=== PATIENT | male | born 1945 | race Caucasian/White ===

== ENCOUNTER 2019-08-20 19:26 | Emergency (ER) | payer MEDICARE, BC ==
[~2019-08-20] VITALS: Ht 170.2 cm; Wt 102.1 kg
--- OUTSIDE RECORDS SUMMARY | ~2019-08-20 | XMS | Clinical Summary ---
Demographics + + + | Address | [address] | | | [place] [address] | + + + | Home Phone | | + + + | Preferred Language | Unknown | + + + | Marital Status | | + + + | Episcopal Affiliation | Unknown | + + + | Race | Unknown | + + + | Ethnic Group | Unknown | + + + Author + + + | Author | [facility] [employer] [facility] (Historical as of | | | 06-21-19) | + + + | Organization | [facility] [employer] (Historical as of | | | 06-21-19) | + + + | Address | Unknown | + + + | Phone | Unavailable | + + + Support + + + + + | Name | Relationship | Address | Phone | + + + + + | Jacque Potter | ECON | [address] | | | | | [place] [address] | | + + + + + Care Team Providers + +------+ + | Care Program Director Name | Role | Phone | + +------+ + | Lucas Thomas MD | PP | | + +------+ + Allergies + + + + + + | Active Allergy | Reactions | Severity | Noted | Comments | | | | | Date | | + + + + + + | Leflunomide | Diarrhea, Nausea and | Low | 09/23/20 | | | | Vomiting | | 15 | | + + + + + + | Atorvastatin | Muscle Pain | | 03/12/20 | | | | | | 19 | | + + + + + + | Celecoxib | Other (See Comments) | Medium | 09/23/20 | muscular aches and | | | | | 15 | pain | + + + + + + | Methotrexate | Nausea Only | Low | 09/23/20 | | | Derivatives | | | 15 | | + + + + + + | Penicillins | Anaphylaxis | High | 09/23/20 | | | | | | 15 | | + + + + + + | Sulfa Antibiotics | Rash | Medium | 09/23/20 | | | | | | 15 | | + + + + + + | Liraglutide | Other (See Comments) | Medium | 09/23/20 | Causes pain to | | | | | 15 | stomach and back | + + + + + + | Ezetimibe-Simvastati | Other (See Comments) | Medium | 09/23/20 | Muscular aches and | | n | | | 15 | pains | + + + + + + Current Medications + + +--------+---------+------+------+-------+ | Prescription | Sig. | Disp. | Refills | Star | End | Statu | | | | | | t | Date | s | | | | | | Date | | | + + +--------+---------+------+------+-------+ | aspirin 81 MG EC | Take 81 mg by mouth | | | | | Activ | | tablet | daily with | | | | | e | | | breakfast. | | | | | | + + +--------+---------+------+------+-------+ | glipiZIDE | Take 10 mg by mouth | | | | | Activ | | (GLUCOTROL) 10 MG | daily. | | | | | e | | tablet | | | | | | | + + +--------+---------+------+------+-------+ | insulin glargine | Inject 48 Units into | | | | | Activ | | (LANTUS) 100 UNIT/ML | the skin nightly. | | | | | e | | injection | | | | | | | + + +--------+---------+------+------+-------+ | | Take 1 tablet by | | | | | Activ | | losartan-hydrochloro | mouth daily. | | | | | e | | thiazide (HYZAAR) | | | | | | | | 100-25 MG per tablet | | | | | | | + + +--------+---------+------+------+-------+ | famotidine | Take 40 mg by mouth | | | | | Activ | | (PEPCID) 40 MG | Before eavning meal. | | | | | e | | tablet | | | | | | | + + +--------+---------+------+------+-------+ | omeprazole | Take 20 mg by mouth | | | | | Activ | | (PRILOSEC) 20 MG | every morning before | | | | | e | | capsule | breakfast. | | | | | | + + +--------+---------+------+------+-------+ | levothyroxine | Take 125 mcg by | | | | | Activ | | (SYNTHROID) 125 MCG | mouth every morning | | | | | e | | tablet | before breakfast. 2 | | | | | | | | tablets in mornings | | | | | | + + +--------+---------+------+------+-------+ | Cholecalciferol | Take 1,000 Units by | | | | | Activ | | 2000 UNITS CAPS | mouth once a week. | | | | | e | + + +--------+---------+------+------+-------+ | nitroGLYCERIN | Place 1 tablet under | 25 | 3 | 09/05 | | Activ | | (NITROSTAT) 0.4 MG | the tongue every 5 | tablet | | 9/20 | | e | | SL tablet | (five) minutes as | | | 15 | | | | | needed for Chest | | | | | | | | pain. | | | | | | + + +--------+---------+------+------+-------+ | metFORMIN | Take 1 tablet by | | | 12/06 | | Activ | | (GLUCOPHAGE) 1000 MG | mouth 2 (two) times | | | /20 | | e | | tablet | daily with meals. | | | 16 | | | | | Hold for 2 more | | | | | | | | days. Restart on | | | | | | | | Sunday12/25/2015 | | | | | | + + +--------+---------+------+------+-------+ | amLODIPine | Take 5 mg by mouth | | | | | Activ | | (NORVASC) 5 MG | daily. | | | | | e | | tablet | | | | | | | + + +--------+---------+------+------+-------+ | methotrexate 50 | Inject 50 mg into | | | | | Activ | | MG/2ML injection | the muscle every 7 | | | | | e | | | days. | | | | | | + + +--------+---------+------+------+-------+ | folic acid | Take 1 mg by mouth | | | | | Activ | | (FOLVITE) 1 MG | daily. | | | | | e | | tablet | | | | | | | + + +--------+---------+------+------+-------+ | clobetasol | Apply 0.05 % | | | | | Activ | | propionate | topically 2 (two) | | | | | e | | (TEMOVATE) 0.05 % | times daily. Apply | | | | | | | cream | twice a day to the | | | | | | | | affected area | | | | | | + + +--------+---------+------+------+-------+ | econazole nitrate | Apply topically | | | | | Activ | | 1 % cream | daily. | | | | | e | + + +--------+---------+------+------+-------+ | insulin NPH, | Inject 5 Units into | | | | | Activ | | human, (HUMULIN) 100 | the skin daily. | | | | | e | | UNIT/ML injection | | | | | | | + + +--------+---------+------+------+-------+ | cyanocobalamin | Take 1,000 mcg by | | | | | Activ | | (VITAMIN B-12) 1000 | mouth daily. | | | | | e | | MCG tablet | | | | | | | + + +--------+---------+------+------+-------+ | prazosin | Take 1 mg by mouth | | | | | Activ | | (MINIPRESS) 1 MG | nightly. | | | | | e | | capsule | | | | | | | + + +--------+---------+------+------+-------+ | metoprolol | Take 1 tablet by | 90 | 3 | 05/0 | | Activ | | (TOPROL-XL) 25 MG 24 | mouth daily. | tablet | | 8/20 | | e | | hr tablet | | | | 19 | | | + + +--------+---------+------+------+-------+ | ezetimibe (ZETIA) | Take 1 tablet by | 30 | 11 | 05/0 | 05/0 | Activ | | 10 MG tablet | mouth daily. | tablet | | 8/20 | 7/20 | e | | | | | | 19 | 20 | | + + +--------+---------+------+------+-------+ Active Problems + + + | Problem | Noted Date | + + + | Rheumatoid arthritis (HCC) | 03/12/2019 | + + + | Essential hypertension | 09/23/2015 | + + + + + | Last Assessment & Plan: Hypertension, controlled, continue | | current meds at current dose (losartan | | | | HCT). | + + + + + | HLD (hyperlipidemia) | 09/23/2015 | + + + + + | Last Assessment & Plan: Hyperlipidemia, labs reviewed with | | patient. [place] 10 year risk 16%, should be considered for | | statin therapy.Lab, 07/01/2015: T Chol: 177, LDL-Chol: 104, | | HDL-Chol: 41, Tri AST/ALT/GGT: | | 36/54/59, K: 4.3, BUN/Cr: 14/1.2 (GFR 63), glu: 171 | | TSH: 0.289, free T4: 2.26, HgbA1c: 8.9, WBC: 7.3, | | H/H: 16.3/48.3, plt: 261, ESR: 1Lab, 09/06/2015: T Chol: 188, | | LDL-Chol: 117, HDL-Chol: 46, Tri | | TSH: 0.202, HgbA1c: 8.1Lab, 12/22/2015: K: 3.5, BUN/Cr: 12/1.3 | | (GFR 58), glu: 154 WBC: 6.2, H/H: | | 14.6/41.8, plt: 262 | + + + + + | Type 2 diabetes mellitus without complication (HCC) | 09/23/2015 | + + + Resolved Problems + + + + | Problem | Noted | Resolved | | | Date | Date | + + + + | Precordial pain | 09/23/20 | | | | 15 | 9 | + + + + + + | Last Assessment & Plan: Chest pain. 70yo WM, with | | recurrent chest discomfort, shortness breath, brought on with | | exertion. He denies any palpitations, no symptoms at rest. The | | amount of activity required to bring on symptoms varies, as does | | the duration of symptoms. No trauma. ECG benign. Recent | | nuclear perfusion study suggest a small area of reversible | | ischemia involving the inferior lateral wall left ventricle. She | | went on to have a coronary angiogram which revealed normal | | coronaries, questionable aortic valve gradient, however | | echocardiogram failed to demonstrate any aortic stenosis or | | aortic insufficiency. His LVEF is well-preserved, he does have | | mild concentric LVH. Because of his chest discomfort is not | | entirely clear, but he does not have any significant coronary | | disease. I've asked him to continue metoprolol as previously | | ordered, and to get into a regular exercise routine. He can be | | followed clinically.Hx CABG: noHx PCI/stent: noHx ICD/Pacemaker: | | noLast Cath, 12/22/2015: coronaries NML (left arelis, LAD, ramus, | | LCx, dominant RCA), LVEF 60-65%, 50mmHg Ao gradient?.Last Echo, | | 12/22/2015: TDS, mild concentric LVH, LVEF 60-65%, mild LAE, no | | , trace MR, mild TR, est systolic PAP 27-32mmHg.Last Stress | | Test, 11/17/2015 ([facility]): Lexiscan, small area of ischemia | | in the inferolateral wall, LVEF 76%. (False positive.)ECG, | | : sinus rhythm, 67bpm, low voltage. | + + Family History + + +------+ + | Medical History | Relation | Name | Comments | + + +------+ + | Diabetes type II | Father | | | + + +------+ + | Heart disease | Father | | | + + +------+ + | Hypertension | Father | | | + + +------+ + | Cancer | Maternal | | | | | Grandfath | | | | | er | | | + + +------+ + | Cancer | Maternal | | | | | Grandmoth | | | | | er | | | + + +------+ + | Heart disease | Mother | | | + + +------+ + | Hypertension | Mother | | | + + +------+ + | Cancer | Paternal | | | | | Grandmoth | | | | | er | | | + + +------+ + + +------+ + + | Relation | Name | Status | Comments | + +------+ + + | Father | | | VA,CHF,HTN,DMII | | | | (Age | | | | | 80) | | + +------+ + + | Maternal Grandfather | | | brain tumor-malignant | | | | (Age | | | | | 52) | | + +------+ + + | Maternal Grandmother | | | heart disease | | | | (Age | | | | | 84) | | + +------+ + + | Mother | | | CHF,HTN | | | | (Age | | | | | 84) | | + +------+ + + | Paternal Grandmother | | | pancreatic cancer | | | | (Age | | | | | 78) | | + +------+ + + Social History + +-------+ +--------+------+ | Tobacco Use | Types | Packs/Day | Years | Date | | | | | Used | | + +-------+ +--------+------+ | Never Smoker | | | | | + +-------+ +--------+------+ + +---+---+---+ | Smokeless Tobacco: | | | | | Never Used | | | | + +---+---+---+ + + +---------+ + | Alcohol Use | Drinks/We | oz/Week | Comments | | | ek | | | + + +---------+ + | Yes | | | once a week | + + +---------+ + + + + | Sex Assigned at | Date Recorded | | | | + + + | Not on file | | + + + Last Filed Vital Signs + + + + | Vital Sign | Reading | Time Taken | + + + + | Blood Pressure | 124/64 | 03/12/2019 12:48 PM PDT | + + + + | Pulse | 99 | 03/12/2019 12:48 PM PDT | + + + + | Temperature | 36.8 C (98.2 F) | 12/22/2015 10:23 AM PST | + + + + | Respiratory Rate | 19 | 01/10/2016 11:11 AM PST | + + + + | Oxygen Saturation | 96% | 03/12/2019 12:48 PM PDT | + + + + | Inhaled Oxygen | - | - | | Concentration | | | + + + + | Weight | 103.9 kg (229 lb 1.6 | 03/12/2019 12:48 PM PDT | | | oz) | | + + + + | Height | 171.5 cm (5' 7.5") | 03/12/2019 12:48 PM PDT | + + + + | Body Mass Index | 35.35 | 03/12/2019 12:48 PM PDT | + + + + Plan of Treatment +--------+---------+ + + + | Date | Type | Specialty | Care Team | Description | +--------+---------+ + + + | 03/24/ | Office | | Alexander Rojo, | | | 2019 | Visit | | MD Chester Trammell | | | | | | Dr [address], | | | | | | [place] [address] | | | | | | [phone] | | | | | | | | +--------+---------+ + + + + + + + + | Health Maintenance | Due Date | Last Done | Comments | + + + + + | Diabetic Eye Exam | | | | | | 7 | | | + + + + + | Diabetic Foot Exam | | | | | | 7 | | | + + + + + | Hemoglobin A1c | | | | | | 7 | | | + + + + + | Microalbumin | | | | | Screening | 7 | | | + + + + + | Vaccine: | | | | | Dtap/Tdap/Td (1 - | 6 | | | | Tdap) | | | | + + + + + | Colon Cancer | | | | | Screening | 7 | | | | (Colonoscopy) | | | | + + + + + | Vaccine: Zoster (1 | | | | | of 2) | 7 | | | + + + + + | Vaccine: | | | | | Pneumococcal 65+ | 2 | | | | Low/Medium Risk (1 | | | | | of 2 - PCV13) | | | | + + + + + | Vaccine: Influenza | | | | | (#1) | 9 | | | + + + + + Results Not on filefrom Last 3 Months Insurance + +--------+ +------+-------+ + | Payer | Benefi | Subscriber | Type | Phone | Address | | | t Plan | ID | | | | | | / | | | | | | | Group | | | | | + +--------+ +------+-------+ + | [employer] | PREMER | [id number] | | | [address] [address] | | | A BLUE | 8 | | | [place] | | | CARD | | | | [phone] | + +--------+ +------+-------+ + | MEDICARE | MEDICA | [id number] | | | [address] | | | RE | | | | [place] [id number] | | | IP-OP | | | | | + +--------+ +------+-------+ + + +--------+ +--------+ + + | Guarantor Name | Accoun | Relation to | Date | Phone | Billing Address | | | t Type | Patient | of | | | | | | | | | | + +--------+ +--------+ + + | JACQUE POTTER | Person | Self [birth year] | Home: | [address] | | | al/Fam | | 1945 | [phone] | [place] [address] | | | [place] | | | [phone] | | + +--------+ +--------+ + +
--- OUTSIDE RECORDS SUMMARY | ~2019-08-20 | XMS | Clinical Summary ---
Demographics + + + | Address | [address] | | | [place] [address] | + + + | Home Phone | | + + + | Preferred Language | Unknown | + + + | Marital Status | | + + + | Scientologist Affiliation | Unknown | + + + | Race | Unknown | + + + | Ethnic Group | Unknown | + + + Author + + + | Author | [facility] [employer] (Historical as of | | | 06-21-19) | + + + | Organization | [facility] [facility] (Historical as of | | | 06-21-19) | + + + | Address | Unknown | + + + | Phone | Unavailable | + + + Support + + + + + | Name | Relationship | Address | Phone | + + + + + | Jacque Potter | ECON | [address] | | | | | [place] [address] | | + + + + + Care Team Providers + +------+ + | Care Digging Machine Operator Name | Role | Phone | + [...] Hyperlipidemia, labs reviewed with | | patient. [place] 10 year risk 16%, should be considered [...] + + | Father | | | [place],CHF,HTN,DMII | | | | (Age | | [...] | | | | | | [place] [address] | | | | | | [phone] | | | | | | | [...] +------+-------+ + | [employer] | PREMER | [id number] | | | [address] [address] | | | A BLUE | 8 | | | [place] | | | CARD | | | | [phone] | + +--------+ +------+-------+ + | MEDICARE | MEDICA | [id number] | | | [address] | | | RE | | | | [place] [phone] | | | IP-OP | | | [...] | Self [birth year] | Home: | [address] | | | al/Fam | | 1945 | [phone] | [place] [address] | | | [place] | | | [phone] | | + +--------+ +--------+ + +
--- OUTSIDE RECORDS SUMMARY | ~2019-08-20 | XMS | Clinical Summary ---
Demographics + + + | Address | [address] | | | [place] [address] | + + + | Home Phone | | + + + | Preferred Language | Unknown | + + + | Marital Status | | + + + | Synagogue Affiliation | Unknown | + + + | Race | Unknown | + + + | Ethnic Group | Unknown | + + + Author + + + | Author | [facility] | | | and [place] | + + + | Organization | [facility] | | | and [place] | + + + | Address | Unknown | + + + | Phone | Unavailable | + + + Support + + + + + | Name | Relationship | Address | Phone | + + + + + | Yessi Potter | ECON | [address] | | | | | , [place] [address] | | + + + + + | Kimberly Potter | ECON | [address] | | | | | , [place] [address] | | + + + + + Care Team Providers + +------+ + | Care Content Specialist Name | Role | Phone | + +------+ + | Lucas Thomas MD | PCP | | + +------+ + Allergies + + + + + + | Active Allergy | Reactions | Severity | Noted | Comments | | | | | Date | | + + + + + + | Leflunomide | Diarrhea, Nausea And | Low | 09/23/20 | Diarrhea | | | Vomiting | | 15 | | + + + + + + | Atorvastatin | Myalgia | | 03/12/20 | Muscle Pain | | | | | 19 | | + + + + + + | Celecoxib | Other (See Comments) | Medium | 09/23/20 | muscular aches and | | | | | 15 | pain | + + + + + + | Methotrexate | Nausea Only | Low | 09/23/20 | Nausea | | Derivatives | | | 15 | | + + + + + + | Penicillins | Anaphylaxis | High | 09/23/20 | | | | | | 15 | | + + + + + + | Sulfa Antibiotics | Rash | Medium | 09/23/20 | Rash | | | | | 15 | [...] | + + + + + + Medications + + + +---------+------+------+-------+ | Medication | Sig | Dispensed | Refills | Star | End | Statu | | | | | | t | Date | s | | | | | | Date | | | + + + +---------+------+------+-------+ | aspirin 81 MG EC | Take 81 mg by mouth | | 0 | 11/1 | | Activ | | tablet | daily with | | | 9/20 | | e | | | breakfast. | | | 15 | | | + + + +---------+------+------+-------+ | glipiZIDE | Take 10 mg by mouth | | 0 | 11/1 | | Activ | | (GLUCOTROL) 10 MG | daily. | | | 9/20 | | e | | tablet | | | | 15 | | | + + + +---------+------+------+-------+ | insulin glargine | Inject 48 Units into | | 0 | 1 | | Activ | | (LANTUS SOLOSTAR) | the skin nightly. | | | 9/20 | | e | | 100 units/mL | | | | 15 | | | | injection (pen) | | | | | | | + + + +---------+------+------+-------+ | | Take 1 tablet by | | 0 | 09/05 | | Activ | | losartan-hydrochloro | mouth daily. | | | 07/25 | | e | | thiazide (HYZAAR) | | | | 15 | | | | 100-25 MG per tablet | | | | | | | + + + +---------+------+------+-------+ | famotidine | Take 40 mg by mouth | | 0 | 09/05 | | Activ | | (PEPCID) 40 MG | Before eavning meal. | | | 20 | | e | | tablet | | | | 15 | | | + + + +---------+------+------+-------+ | omeprazole | Take 20 mg by mouth | | 0 | 11/1 | | Activ | | (PRILOSEC) 20 mg | every morning before | | | 9/20 | | e | | capsule | breakfast. | | | 15 | | | + + + +---------+------+------+-------+ | levothyroxine | Take 125 mcg by | | 0 | /1 | | Activ | | (SYNTHROID) 125 mcg | mouth every morning | | | 20 | | e | | tablet | before breakfast. 2 | | | 15 | | | | | tablets in mornings | | | | | | + + + +---------+------+------+-------+ | Cholecalciferol | Take 1,000 Units by | | 0 | 1 | | Activ | | (VITAMIN D-3) 2000 | mouth once a week. | | | 9/20 | | e | | units CAPS | | | | 15 | | | + + + +---------+------+------+-------+ | metFORMIN | Take 1 tablet by | | 0 | 02/1 | | Activ | | (GLUCOPHAGE) 1000 MG | mouth 2 (two) times | | | 05/24 | | e | | tablet | daily with meals. | | | 16 | | | | | Hold for 2 more | | | | | | | | days. Restart on | | | | | | | | Sunday12/25/2015 | | | | | | + + + +---------+------+------+-------+ | amLODIPine | Take 5 mg by mouth | | 0 | 03/0 | | Activ | | (NORVASC) 5 mg | daily. | | | 05/24 | | e | | tablet | | | | 16 | | | + + + +---------+------+------+-------+ | methotrexate 25 | Inject 50 mg into | | 0 | 05/0 | | Activ | | mg/mL injection | the muscle every 7 | | | 06/24 | | e | | | days. | | | 19 | | | + + + +---------+------+------+-------+ | folic acid 1 mg | Take 1 mg by mouth | | 0 | 05/0 | | Activ | | tablet | daily. | | | 8/20 | | e | | | | | | 19 | | | + + + +---------+------+------+-------+ | clobetasol | Apply 0.05 % | | 0 | 05/0 | | Activ | | (TEMOVATE) 0.05% | topically 2 (two) | | | 8/20 | | e | | cream | times daily. Apply | | | 19 | | | | | twice a day to the | | | | | | | | affected area | | | | | | + + + +---------+------+------+-------+ | econazole 1% cream | Apply topically | | 0 | 05/0 | | Activ | | | daily. | | | 8/20 | | e | | | | | | 19 | | | + + + +---------+------+------+-------+ | insulin NPH | Inject 5 Units into | | 0 | 05/0 | | Activ | | (HUMULIN Julia STARK) | the skin daily. | | | 8/20 | | e | | 100 units/mL | | | | 19 | | | | injection pen | | | | | | | + + + +---------+------+------+-------+ | cyanocobalamin | Take 1,000 mcg by | | 0 | 05/0 | | Activ | | (VITAMIN B-12) 1000 | mouth daily. | | | 8/20 | | e | | MCG tablet | | | | 19 | | | + + + +---------+------+------+-------+ | prazosin | Take 1 mg by mouth | | 0 | 05/0 | | Activ | | (MINIPRESS) 1 mg | nightly. | | | 8/20 | | e | | capsule | | | | 19 | | | + + + +---------+------+------+-------+ | metoprolol | Take 1 tablet by | 90 | 3 | 05/0 | | Activ | | succinate | mouth daily. | tablet | | 8/20 | | e | | (TOPROL-XL) 25 mg 24 | | | | 19 | | | | hr tablet | | | | | | | + + + +---------+------+------+-------+ | ezetimibe (ZETIA) | Take 1 tablet by | 30 | 11 | 05/0 | | Activ | | 10 mg tablet | mouth daily. | tablet | | 06/24 | 05/24 | e | | | | | | | 20 | | + + + +---------+------+------+-------+ Active Problems + + + | Problem | Noted Date | + + + | Rheumatoid arthritis | 03/12/2019 | + + + | Essential hypertension | 09/23/2015 | + + + | HLD (hyperlipidemia) | 09/23/2015 | + + + | Type 2 diabetes mellitus without complication | 09/23/2015 | + + + Family History + + +------+ + | Medical History | Relation | Name | Comments | + + +------+ + | Diabetes, NIDDM | Father | | | + + [...] + + | Father | | | AL,CHF,HTN,DMII | | | | (Age | | | | | 80) | | + +------+ + + | Father | | | | + +------+ + + | Maternal Grandfather | | | brain tumor-malignant | | | | (Age | | | | | 52) | | + +------+ + + | Maternal Grandfather | | | | + +------+ + + | Maternal Grandmother | | | heart disease | | | | (Age | | | | | 84) | | + +------+ + + | Maternal Grandmother | | | | + +------+ + + | Mother | | | CHF,HTN | | | | (Age | | | | | 84) | | + +------+ + + | Mother | | | | + +------+ + + | Paternal Grandmother | | | pancreatic cancer | | | | (Age | | | | | 78) | | + +------+ + + | Paternal Grandmother | | | | + +------+ + + Social History + +-------+ +--------+------+ | Tobacco Use | Types | Packs/Day | Years | Date | | | | | Used | | + +-------+ +--------+------+ | Never Smoker | | | | | + +-------+ +--------+------+ + + + | Sex Assigned at | Date Recorded | | | | + + + | Not on file | | + + + + + + + | Job Start Date | Occupation | Industry | + + + + | Not on file | Not on file | Not on file | + + + + + + + + | Travel History | Travel Start | Travel End | + + + + + + | No recent travel history available. | + + Last Filed Vital Signs + + + + | Vital Sign | Reading | Time Taken | + + + + | Blood Pressure | 124/64 | 03/12/2019 1258 PDT | + + + + | Pulse | 99 | 03/12/20198 PDT | + + + + | Temperature | 36.8 C (98.2 F) | 12/22/2015 1446 PST | + + + + | Respiratory Rate | 19 | 01/10/2016 1111 PST | + + + + | Oxygen Saturation | - | - | + + + + | Inhaled Oxygen | - | - | | Concentration | | | + + + + | Weight | 103.9 kg (229 lb 1.6 | 03/12/2019 125 PDT | | | oz) | | + + + + | Height | 171.5 cm (5' 7.5") | 03/12/20191257 PDT | + + + + | Body Mass Index | 35.35 | 03/12/20191257 PDT | + + + + Plan of Treatment +--------+---------+ + + + | Date | Type | Specialty | Care Team | Description | +--------+---------+ + + + | 03/24/ | Office | Cardiology | Alexander Rojo, | | | 2019 | Visit | | MD [address] | | | | | | [place] | | | | | | [address] | | | | | | | | +--------+---------+ + + + + + + + + | Health Maintenance | Due Date | Last Done | Comments | + + + + + | Hepatitis C | | | | | Screening | 7 | | | + + + + + | Diabetic Eye Exam | | | | | | 5 | | | + + + + + | Diabetic Foot Exam | | | | | | 5 | | | + + + + + | Hemoglobin A1c | | | | | Screening | 5 | | | + + + + + | Vaccine: | | | | | Dtap/Tdap/Td (1 - | 6 | | | | Tdap) | | | | + + + + + | Colorectal Cancer | | | | | Screening [...] | + + + + + | Adult Annual | | | | | Wellness Visit | 9 | | | + + + + + | Vaccine: Influenza | | | | | (#1) | 9 | | | + + + + + Results Not on filefrom Last 3 Months Insurance + +--------+ +--------+ +---------+--------+ | Payer | Benefi | Subscriber | Effect | Phone | Address | Type | | | t Plan | ID | warner | | | | | | / | | Dates | | | | | | Group | | | | | | + +--------+ +--------+ +---------+--------+ | [employer] | PACIFI | [id number] | 06/05/20 | [phone] | | PPO | | | [employer] | | 17-Pre | 2 | | | | | E | | sent | | | | | | FIRST | | | | | | | | CHOICE | | | | | | + +--------+ +--------+ +---------+--------+ | MEDICARE | MEDICA | [id number] | 02/04/20 | [phone] | | Medica | | | RE | | 12-Pre | 5 | | re | | | PART A | | sent | | | | | | AND B | | | | | | + +--------+ +--------+ +---------+--------+ + +--------+ +--------+ + + | Guarantor Name | Accoun | Relation to | Date | Phone | Billing Address | | | t Type | Patient | of | | | | | | | | | | + +--------+ +--------+ + + | Greg Potter | Person | Self [birth year] | [address] | | | al/Fam | | 1945 | [phone] | [place] [address] | | | theresa | | | 1 (Home) | | + +--------+ +--------+ + + Advance Directives Patient has advance care planning documents on file. For more information, please contact:[place] [address]
--- OUTSIDE RECORDS SUMMARY | ~2019-08-20 | XMS | Clinical Summary ---
Demographics + + + | Address | [address] | | | [place] [address] | + + + | Home Phone | | + + + | Preferred Language | Unknown | + + + | Marital Status | | + + + | Anabaptism Affiliation | Unknown | + + + | Race | Unknown | + + + | Ethnic Group | Unknown | + + + Author + + + | Author | [facility] | | | and [place] | + + + | Organization | [facility] | | | and [place] | + + + | Address | Unknown | + + + | Phone | Unavailable | + + + Support + + + + + | Name | Relationship | Address | Phone | + + + + + | Yessi Potter | ECON | [address] | | | | | , [place] [address] | | + + + + + | Kimberly Potter | ECON | [address] | | | | | , [place] [address] | | + + + + + Care Team Providers + +------+ + | Care Baker Second Name | Role | Phone | + [...] + + | Father | | | NM,CHF,HTN,DMII | | | | (Age | | [...] [place] | | | | | | [address] | | | | | | | [...] +--------+ +---------+--------+ | [employer] | PACIFI | [id number] | 06/05/20 | [phone] | | PPO | | | [employer] | | 17-Pre | 2 | | | | | E | | sent | | | | | | FIRST | | | | | | | | CHOICE | | | | | | + +--------+ +--------+ +---------+--------+ | MEDICARE | MEDICA | [id number] | 02/04/20 | [phone] | | Medica [...] Person | Self | [birth year] | | [address] | | | al/Fam | | 1945 | [phone] | [place] [address] | | | theresa | | | 1 (Home) | | + +--------+ +--------+ + + Advance Directives Patient has advance care planning documents on file. For more information, please contact:[facility] [place] [address]
[~2019-08-20 19:26] MED LIST: ADULT LOW DOSE81 MG PO; AMLODIPINE BESYL5 MG PO; BETAMETHASONE V15 GM TOP; BYDUREON2 MG SUB-Q; FAMOTIDINE40 MG PO; FLOMAX0.4 MG PO; GLIPIZIDE XL10 MG PO; HUMALOG100 UNIT/2 SUB-Q; HYDROCHLOROTHIA25 MG PO; JANUMET 50-1,01 EACH PO; LANTUS100 UNITS/ SUB-Q; LOSARTAN-HCTZ1 EAC1 PO; METFORMIN HCL1000 MG PO; METOPROLOL SUCC25 MG PO; NITROGLYCERIN0.4 MG SL; NORCO 10-325 T1 EACH PO; OMEPRAZOLE20 M1 PO; PERCOCET 5-3251 EACH PO; PLAQUENIL200 MG PO; PRAVACHOL20 MG PO; REFRESH TEARS15 ML; SYNTHROID200 MCG PO; TYLENOL325 MG PO; VICTOZA 2-0.6 MG/0.1 SUB-Q
[2019-08-20] MEDS ORDERED: MECLIZINE HCL25 MG PO (22:54)
--- NOTE | 2019-08-21 20:52 | EKG ---
[facility] [address] [place] [address] Signed Normal sinus rhythm Low voltage QRS Nonspecific T wave abnormality Abnormal ECG When compared with ECG of 11-APR-2017 12:53, Nonspecific T wave abnormality now evident in Anterior leads Confirmed by HIWOT SIEGEL MD ([id number]) on 08/21/2019 8:52:33 PM Electronically Signed By: HIWOT SIEGEL MD 08/21/192051 PATIENT NAME: JACQUE BLANC Electrocardiogram DATE OF : 49 PHYSICIAN: HIWOT SIEGEL MD REPORT #: [id number] REPORT IS CONFIDENTIAL AND NOT TO BE RELEASED WITHOUT AUTHORIZATION
== END 2019-08-20 23:16 | disposition home or self-care (01) ==
LOC: ED 19:26
DX: R42 Dizziness and giddiness (principal); E11.9 Type 2 diabetes mellitus without complications; I10 Essential (primary) hypertension; Z88.0 Allergy status to penicillin; Z88.2 Allergy status to sulfonamides; Z88.8 Allergy status to other drugs, medicaments and biological substances; Z79.899 Other long term (current) drug therapy; Z79.4 Long term (current) use of insulin
CPT/HCPCS: 70450; 71045; 80053; 83735; 84484; 85025; 93005; 93010; 99284-25

== ENCOUNTER 2020-12-03 06:15 | Day surgery (SDC) | payer MEDICARE, BC ==
[~2020-12-03] VITALS: Ht 170.2 cm; Wt 91.3 kg
[~2020-12-03 06:15] MED LIST changes: +MECLIZINE HCL25 MG PO
[2020-12-03] MEDS ORDERED: OZEMPIC0.25 MG/0. (06:40)
[2020-12-03] MEDS ORDERED: OTREXUP 1010 MG/0.4 SUB-Q (06:46)
[2020-12-03] MEDS ORDERED: FLOMAX0.4 MG PO (06:50)
[2020-12-03] MEDS ORDERED: HYZAAR 50-12.51 EACH PO (07:12)
[2020-12-03] MEDS ORDERED: VITAMIN D325 MC2 PO (07:28)
[2020-12-03] MEDS ORDERED: PRAZOSIN HCL1 MG PO (07:28)
[2020-12-03] MEDS ORDERED: VITAMIN B COMP1 EACH PO (07:29)
[2020-12-03] MEDS ORDERED: FOLIC ACID20 MG PO (07:30)
--- NOTE | 2020-12-03 07:47 | NUR ---
BLOOD GLUCOSE IS 140 ON ADDMITION
--- NOTE | 2020-12-03 08:13 | NUR ---
12/03/20 0813 Chika Jensen 0806 PATIENT ARRIVES TO PACU SLEEPING. AWAKENS WITH VERBAL STIMULI. RESP EVEN AND UNLABORED, ROOM AIR SATS >95%. PATIENT PASSING GAS. 0813 PATIENT AWAKE OFF/ON, BUT VERY DROWSY. ASKING QUESTIONS APPROPRIATELY. RESP EVEN AND UNLABORED. DENIES PAIN OR NAUSEA.
--- NOTE | 2020-12-03 08:44 | NUR ---
PT HAS BEEN TAKEN FOR SCOPE-PT'S REMAINS IN RM. SHE SEEMS AT EASE, NO ISSUES OR NEEDS. GAVE BLESSING, WILL FOLLOW NEEDED
--- NOTE | 2020-12-05 15:46 | OR ---
[facility] [address] [place], [place] [address] Signed DATE OF OPERATION: 12/03/2020 SURGEON: Alexandro Rubio MD PREOPERATIVE DIAGNOSES: 1. Longstanding gastroesophageal reflux; persistent epigastric pain. 2. Diarrhea, improved by modification of metformin dose. 3. History of colonic polyps (2012). POSTOPERATIVE DIAGNOSES: 1. Hiatal hernia without esophagitis. 2. Colonic diverticulosis of sigmoid and small polyp of left transverse colon x1. PROCEDURES: 1. Esophagogastroduodenoscopy with biopsy. 2. Total colonoscopy to cecum with biopsy of cecum and rectum and cold morcellation polypectomy with polyp of left transverse colon. ANESTHESIA: Intravenous sedation, fentanyl 100 mcg, Versed 5 mg total. INDICATIONS: This 75-year-old white man is a patient now of Dr. Saldivar, formally of Dr. Thomas. He is known to have longstanding reflux disease, diabetes, and other medical problems including sleep apnea, obesity and so on. He additionally is considered to have history of celiac disease for which he avoids gluten. He has been having persistent epigastric pain, but no associated dysphagia. He continues to take PPI medication for his reflux issue. As regards to colon, he had a long episode of persistent diarrhea, which was improved by modification of his metformin dosage. He has had no blood per rectum and has no known family history of colon cancer. He has undergone colonoscopy in the past, which showed polyps in 2013. He is admitted today concurrently to undergo colonoscopy. FINDINGS: Upper endoscopy showed a small hiatal hernia, but no sign of Valentin's epithelium, stricture or neoplasm of the esophagus. The stomach and duodenum appeared normal. Notably, the duodenal mucosa showed no typical stigmata of celiac disease. Biopsies were taken. Electronically Signed By: ALEXANDRO RUBIO MD 12/05/20 1546 PATIENT NAME: JACQUE BLANC OPERATIVE REPORT DATE OF : 49 REPORT #: [id number] PHYSICIAN: ALEXANDRO RUBIO MD PCP: RINA SALDIVAR MD REPORT IS CONFIDENTIAL AND NOT TO BE RELEASED WITHOUT AUTHORIZATION [facility] [address] [place], [place] [address] Signed On colonoscopy, the prep was good. Numerous diverticula were noted of the sigmoid and left colon. There was a small polyp of left transverse colon, which was excised. Biopsies of the cecum and rectum were undertaken to assess for occult colitis. DESCRIPTION OF PROCEDURE: The patient was brought to the endoscopy suite and placed in lateral decubitus position and underwent topical lidocaine spray anesthesia. He was given intravenous sedation with full cardiopulmonary monitoring. A bite block was placed. An Olympus video upper endoscope was passed in the hypopharynx. The vocal cords appeared normal. Scope was advanced to the esophagus throughout its length that appeared normal. There was no sign of stricture, Valentin's epithelium, neoplasm or varices. The scope was passed to the stomach, which was insufflated with air. Rugal folds were normal. Antral motility normal. Pylorus was normal. Scope was passed through into the duodenum, which was normal appearing despite prior known history of celiac disease. Biopsies were taken of the duodenal mucosa. The scope was withdrawn. A biopsy was taken of the antrum for both ANTONELLA and pathologic testing. Retroflexed view undertaken, showed a poor flap valve consistent with small hiatal hernia. The scope was withdrawn to the distal esophagus and biopsies taken from there and in the mid esophagus as well. The scope was further withdrawn and removed. Plans were then made for colonoscopy. Additional sedation was given. Digital rectal examination performed, which was normal. An Olympus video colonoscope was passed in the rectum and manipulated throughout the colon noting numerous diverticula of the sigmoid and left colon. The scope was ultimately advanced to the cecum. The ileocecal valve and appendiceal orifice appeared normal. Biopsies were taken of the cecum to assess for occult colitis. Scope was withdrawn and found in what appeared to be right colon was an area of prior tattoo from prior polypectomy. The scope was withdrawn and in the left transverse colon, there was a small sessile polyp, this was excised with cold morcellation technique. The scope was withdrawn further and there were no other findings of note. Biopsies were taken of the rectum to assess for occult colitis as well. The scope was removed. The patient was taken to the recovery room in good condition. CONCLUDING DIAGNOSES: 1. Clinical gastroesophageal reflux with small hiatal hernia, no sign of Valentin's epithelium, stricture neoplasm or ongoing inflammation. I would recommend continued use of PPI. 2. Normal-appearing mucosa of duodenum despite prior history of celiac disease. 3. Diverticulosis of colon. 4. Small polyp of left transverse colon. PLAN: Electronically Signed By: ALEXANDRO RUBIO MD 12/05/20 1546 PATIENT NAME: JACQUE BLANC OPERATIVE REPORT DATE OF : 49 REPORT #: [id number] PHYSICIAN: ALEXANDRO RUBIO MD PCP: RINA SALDIVAR MD REPORT IS CONFIDENTIAL AND NOT TO BE RELEASED WITHOUT AUTHORIZATION [address] [address] Signed Recommend a high-fiber diet. Continue with PPI medication. Repeat colonoscopy in 5 years based on polyp found. He will return to the ongoing care of Dr. Rina Saldivar. MD BETI Aranda/MODL /[id number] cc: Rina Saldivar MD Copies: ~ Electronically Signed By: ALEXANDRO RUBIO MD 12/05/20 1546 PATIENT NAME: JACQUE BLANC KARINA OPERATIVE REPORT DATE OF : 49 REPORT #: [id number] PHYSICIAN: ALEXANDRO RUBIO MD PCP: RINA SALDIVAR MD REPORT IS CONFIDENTIAL AND NOT TO BE RELEASED WITHOUT AUTHORIZATION
--- NOTE | 2020-12-07 16:49 | PATH ---
[facility] [address] [place], [place] [address] Signed SPECIMEN(S): A DUODENAL BIOPSY SPECIMEN(S): B ANTRUM/PYLORUS BIOPSY SPECIMEN(S): C LOWER ESOPHAGEAL BIOPSY SPECIMEN(S): D MIDDLE ESOPHAGEAL BIOPSY SPECIMEN(S): E CECUM BIOPSY SPECIMEN(S): F TRANSVERSE COLON POLYP SPECIMEN(S): G RECTUM SPECIMEN SOURCE: A. DUODENAL BIOPSY B. ANTRUM/PYLORUS BIOPSY C. LOWER ESOPHAGEAL BIOPSY D. MIDDLE ESOPHAGEAL BIOPSY E. CECUM BIOPSY F. TRANSVERSE COLON POLYP G. RECTUM CLINICAL HISTORY: Esophagogastroduodenoscopy, colonoscopy with poss. biopsies. Epigastric pain, colon polyps, diarrhea. DX: Hiatal hernia/polyp/divertic. MICROSCOPIC DESCRIPTION: Histologic sections of all submitted blocks are examined by light microscopy. These findings, together with the gross examination, support the pathologic diagnosis. FINAL PATHOLOGIC DIAGNOSIS: A. Duodenum, biopsy: - Duodenal mucosa with mucosal capillary congestion. - Negative for increased intraepithelial lymphocytes. - Negative for dysplasia or malignancy. B. Stomach, antrum, pylorus, biopsy: - Antral/oxyntic mucosa with reactive gastropathy. - Negative for Helicobacter organisms on HE stain. - Negative for dysplasia or malignancy. C. Esophagus, lower, biopsy: - Squamous mucosa with minimal chronic inflammation and reactive changes. - Negative for intestinal metaplasia, dysplasia, or malignancy. D. Esophagus, middle, biopsy: - Squamous mucosa with no histopathologic abnormality. - Negative for increased intraepithelial eosinophils. - Negative for dysplasia or malignancy. PATIENT NAME: JACQUE BLANC PATHOLOGY DATE OF : 49 REPORT #: [id number] PHYSICIAN: BOLA MADISON PCP: ANASTACIO KIM MD REPORT IS CONFIDENTIAL AND NOT TO BE RELEASED WITHOUT AUTHORIZATION [facility] [address] [place], [place] [address] Signed E. Colon, cecum, biopsy: - Colonic mucosa with no histopathologic abnormality. - Negative for active, chronic, or microscopic colitis. - Negative for dysplasia or malignancy. F. 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 - Negative for dysplasia or malignancy. G. Rectum, biopsy: - Rectal mucosa with no histopathologic abnormality. - Negative for active or chronic proctitis. - Negative for dysplasia or malignancy. NAL:cml:C2NR GROSS DESCRIPTION: Seven specimens are received in seven containers, labeled "PE." A. The specimen, labeled "PE, duodenal biopsy," is received in formalin and consists of two rascon soft tissue fragments that measure 0.1-0.2 cm in greatest dimension. The specimen is entirely submitted in cassette (A1). B. The specimen, labeled "PE, antrum biopsy," is received in formalin and consists of two rascon soft tissue fragments that measure 0.1 cm in greatest dimension. The specimen is entirely submitted in cassette (B1). C. The specimen, labeled "PE, lower esophagus biopsy," is received in formalin and consists of two rascon soft tissue fragments that measure 0.1-0.2 cm in greatest dimension. The specimen is entirely submitted in cassette (C1). D. The specimen, labeled "PE, middle esophagus biopsy," is received in formalin and consists of one rascon soft tissue fragment that measures 0.2 cm in greatest dimension. The specimen is entirely submitted in cassette (D1). E. The specimen, labeled "PE, cecum biopsy," is received in formalin and consists of two rascon soft tissue fragments that measure 0.1-0.2 cm in greatest dimension. The specimen is entirely submitted in cassette (E1). F. The specimen, labeled "PE, transverse colon polyp," is received in formalin and consists of two rascon soft tissue fragments that measure 0.1-0.2 cm in greatest dimension. The specimen is entirely submitted in cassette (F1). G. The specimen, labeled "PE, rectum biopsy," is received in formalin and PATIENT NAME: JACQUE BLANC PATHOLOGY DATE OF : 49 REPORT #: [id number] PHYSICIAN: BOLA MADISON PCP: ANASTACIO KIM MD REPORT IS CONFIDENTIAL AND NOT TO BE RELEASED WITHOUT AUTHORIZATION [facility] [address] [place], [place] [address] Signed consists of two rascon soft tissue fragments that measure 0.1-0.3 cm in greatest dimension. The specimen is entirely submitted in cassette (G1). JS (under the direct supervision of a pathologist) The Gross Description was prepared using a voice recognition system. The report was reviewed for accuracy; however, sound-alike word errors, addition and/or deletions may occur. If there is any question about this report, please contact Client Services. PERFORMING LABORATORY: The technical component was performed by [facility], [address] [place] [address] (Planning Advisor: Nat Zavala MD; CLIA# [id number]). Professional interpretation was performed by [facility], [facility], [address] [address] (CLIA# [id number]). Diagnostician: Zohra Samuels MD Pathologist Electronically Signed 12/07/2020 Copies: ~ PATIENT NAME: JACQUE BLANC PATHOLOGY DATE OF : 49 REPORT #: [id number] PHYSICIAN: BOLA PATHOLOGY PCP: ANASTACIO KIM MD REPORT IS CONFIDENTIAL AND NOT TO BE RELEASED WITHOUT AUTHORIZATION
== END 2020-12-03 08:40 | disposition home or self-care (01) ==
LOC: OPS 06:15 → DS 06:15 → OPS 06:45 → DS 06:45 → OPS 08:40
PROVIDERS: ATTEND Surgery
PROC: 0DB68ZZ Excision of Stomach, Via Natural or Artificial Opening Endoscopic (ICD-10-PCS; principal; 2020-12-03 06:45)
PROC: 0DBL8ZZ Excision of Transverse Colon, Via Natural or Artificial Opening Endoscopic (ICD-10-PCS; 2020-12-03 06:45)
DX: K21.00 Gastro-esophageal reflux disease with esophagitis, without bleeding (principal); K44.9 Diaphragmatic hernia without obstruction or gangrene; K57.30 Diverticulosis of large intestine without perforation or abscess without bleeding; R19.7 Diarrhea, unspecified; K31.9 Disease of stomach and duodenum, unspecified; D12.3 Benign neoplasm of transverse colon; E11.9 Type 2 diabetes mellitus without complications; G47.30 Sleep apnea, unspecified; E66.9 Obesity, unspecified; K90.0 Celiac disease; I10 Essential (primary) hypertension; E89.0 Postprocedural hypothyroidism; Z86.010 Personal history of colon polyps; Z88.4 Allergy status to anesthetic agent; Z88.0 Allergy status to penicillin; Z88.2 Allergy status to sulfonamides; Z88.8 Allergy status to other drugs, medicaments and biological substances; Z79.84 Long term (current) use of oral hypoglycemic drugs
CPT/HCPCS: 99153; G0500; J2250; J3010

== ENCOUNTER 2021-03-31 11:34 | Emergency (ER) | payer MEDICARE, BC ==
[~2021-03-31] VITALS: Ht 170.2 cm; Wt 91.2 kg
[~2021-03-31 11:34] MED LIST changes: +FOLIC ACID20 MG PO; +HYZAAR 50-12.51 EACH PO; +OTREXUP 1010 MG/0.4 SUB-Q; +OZEMPIC0.25 MG/0.; +PRAZOSIN HCL1 MG PO; +VITAMIN B COMP1 EACH PO; +VITAMIN D325 MC2 PO
[2021-03-31] MEDS ORDERED: LANTUS100 UNITS/ SUB-Q (12:00)
--- NOTE | 2021-04-01 13:28 | EKG ---
[facility] [address] [facility] [place], [place] [address] Signed Normal sinus rhythm Low voltage QRS Cannot rule out Inferior infarct , age undetermined Abnormal ECG When compared with ECG of 20-AUG-2019 20:05, No significant change was found Confirmed by DAVID JC DO ([id number]) on 04/01/2021 1:27:55 PM Electronically Signed By: DAVID JC DO 04/01/21 1328 PATIENT NAME: JACQUE BLANC Electrocardiogram DATE OF : 49 PHYSICIAN: DAVID JC DO REPORT #: [id number] REPORT IS CONFIDENTIAL AND NOT TO BE RELEASED WITHOUT AUTHORIZATION
== END 2021-03-31 15:15 | disposition home or self-care (01) ==
LOC: ED 11:34
DX: U07.1 COVID-19 (principal); E11.9 Type 2 diabetes mellitus without complications; I10 Essential (primary) hypertension; Z88.0 Allergy status to penicillin; Z88.2 Allergy status to sulfonamides; Z88.8 Allergy status to other drugs, medicaments and biological substances; Z79.899 Other long term (current) drug therapy; Z79.4 Long term (current) use of insulin
CPT/HCPCS: 71045; 80053; 81001; 84484; 85025; 93005; 93010; 99285-25; J7030

== ENCOUNTER 2023-02-19 14:11 | Emergency (ER) | payer MEDICARE, BC ==
[~2023-02-19] VITALS: Ht 170.2 cm; Wt 95.2 kg
[2023-02-19] MEDS ORDERED: DODEX1000 MCG/1 IM (14:45)
[2023-02-19] MEDS ORDERED: CELECOXIB100 MG PO (14:46)
[2023-02-19] MEDS ORDERED: LOSARTAN POTASS25 MG PO (14:46)
[2023-02-19] MEDS ORDERED: METHOTREXA25 MG/1 ML INJ (14:46)
[2023-02-19 15:42] VITALS: BP 150/99
--- NOTE | 2023-02-19 21:42 | EKG ---
[facility] [address] [facility] [place] [address] Signed Sinus rhythm with premature atrial complexes Low voltage QRS Borderline ECG When compared with ECG of 31-MAR-2021 12:18, premature atrial complexes are now present Confirmed by Diana Rivers MD () on 02/19/2023 9:42:10 PM Electronically Signed By: DIANA RIVERS MD 02/19/[id number] PATIENT NAME: JACQUE BLANC Electrocardiogram DATE OF : 49 PHYSICIAN: DIANA RIVERS MD REPORT #: [id number] REPORT IS CONFIDENTIAL AND NOT TO BE RELEASED WITHOUT AUTHORIZATION
== END 2023-02-19 15:42 | disposition home or self-care (01) ==
LOC: ED 14:11
DX: R07.9 Chest pain, unspecified (principal); E10.9 Type 1 diabetes mellitus without complications; I10 Essential (primary) hypertension; Z88.0 Allergy status to penicillin; Z88.2 Allergy status to sulfonamides; Z88.8 Allergy status to other drugs, medicaments and biological substances; Z79.899 Other long term (current) drug therapy; Z79.4 Long term (current) use of insulin
CPT/HCPCS: 36415; 71045; 80053; 83735; 84484; 85025; 93005; 93010; A9270

== ENCOUNTER 2025-07-09 17:12 | Inpatient (IN) | payer OTHER, MEDICARE, BC ==
[~2025-07-09] VITALS: Ht 170.2 cm; Wt 85.6 kg
[~2025-07-09 17:12] MED LIST changes: +CELECOXIB100 MG PO; +DODEX1000 MCG/1 IM; +FOLIC ACID1 MG PO; -FOLIC ACID20 MG PO; +LANTUS SOL100 UNIT/1 SUB-Q; +LOSARTAN POTASS25 MG PO; +METHOTREXA25 MG/1 ML SUB-Q; -OMEPRAZOLE20 M1 PO; -OZEMPIC0.25 MG/0.; +OZEMPIC1 MG/0.71 SUB-Q; +PROTONIX40 MG PO; -REFRESH TEARS15 ML; +REFRESH TEARS15 ML OU; +SYNTHROID150 MCG PO; -SYNTHROID200 MCG PO
[2025-07-09] MEDS ORDERED: MONTELUKAST SOD10 MG PO (18:09)
[2025-07-09] MEDS ORDERED: ONDANSETRON ODT4 MG PO (18:11)
[2025-07-09] MEDS ORDERED: SODIUM CHLORIDE 0.9% 1,000 ML IV ONE ×2 (18:30)
[2025-07-09 18:31] LABS: BASOPHILS 0.3 % (0.2-1.2); EOSINOPHILS 0.9 % (0.8-7.0); LYMPHOCYTES 15.4 % (21.8-53.1); MCH 31.8 PG (25.7-32.2); MCHC 35.1 g/dL (32.3-36.5); MCV 90.6 fL (79.0-92.2); MONOCYTES 12.2 % (5.3-12.2); NEUTROPHILS 71.0 % (34.0-67.9); RBC 5.44 M/uL (4.63-6.08)
[2025-07-09 18:48] LABS: ALT (SGPT) 7.0 U/L (14-59); AST (SGOT) 14.0 U/L (15-37); GLOMERULAR FILTRATION RATE,EST 44.0 mL/min (>60); PROTEIN, TOTAL 7.2 g/dL (6.4-8.2); UREA NITROGEN 27.0 mg/dL (7-18)
[2025-07-09 18:50] LABS: BLOOD/HGB, URINE NEGATIVE (Negative); KETONE, URINE SMALL (Negative); LEUK ESTERASE, URINE NEGATIVE (negative); NITRITE, URINE NEGATIVE (negative)
[2025-07-09] MEDS ORDERED: HEParin SOD (PORCINE) 5,000 UNIT/ML SDV SUB-Q SCH ×2 (22:26)
[2025-07-09] MEDS ORDERED: DEXTROSE 50% 50 ML SYR IV PRN ×4 (22:30)
[2025-07-09] MEDS ORDERED: MORPHINE SULFATE 4 MG/ML VIAL IV PRN ×2 (22:30)
[2025-07-09] MEDS ORDERED: DEXTROSE 5% 1,000 ML IV PRN ×2 (22:30)
[2025-07-09] MEDS ORDERED: DEXTROSE 5% - NACL 0.9% 1,000 ML IV SCH ×2 (22:30)
[2025-07-09] MEDS ORDERED: IBLOOD GLUCOSE TEST STRIP 1 EA TEST XX PRN ×2 (22:30)
[2025-07-09] MEDS ORDERED: GLUCAGON,HUMAN RECOMBINANT 1 MG/ML VIAL SUB-Q PRN ×2 (22:30)
--- NOTE | 2025-07-09 23:15 | NUR ---
PT RECEIVED TO ROOM 116 VIA STRETCHER FROM ER ACCOMPANIED BY . PT ABLE TO AMBULATE TO BR W/ SBA. VOIDS WNL. REPORTS ABD PAIN AND THROAT DISCOMFORT /. PT HAS NGT TO RIGHT NARE, NG HOOKED UP TO MIWS W/ RETURN OF ORANGE DRNG. LSC. HRR. BT ABSENT. ABD MODERATELY DISTENDED AND FIRM, MINIMALLY TENDER. REPORTS SOME BELCHING BUT DENIES FLATUS. LFA IV INFUSING D5NS @ 100MLS/HR. SPOUSE TO REMAIN AT BEDSIDE OVERNIGHT. CALL LIGHT WITHIN REACH.
[2025-07-09 23:21] VITALS: BP 150/87
[2025-07-10] VITALS (10 sets, daily range): BP systolic 137–152; BP diastolic 84–99
--- NOTE | 2025-07-10 01:48 | NUR ---
PT AWAKE, HOB @ 45 DEGREES. NG TUBE W/ ORANGE OUTPUT. REPORTS THROAT IRRITATION. BG 203, REQUIRES 3 UNITS SLIDING SCALE INSULIN. 0200 ZOFRAN ADMINISTERED PER EMAR. SPOUSE AT BEDSIDE. CALL LIGHT WITHIN REACH.
--- NOTE | 2025-07-10 01:52 | NUR ---
PURCHASING OFFICER OBTAINED VITALS AND I&O. PT STATES NO NEEDS AT THIS TIME. CALL LIGHT WITHIN REACH.
[2025-07-10] MEDS ORDERED: IBLOOD GLUCOSE TEST STRIP 1 EA TEST VI SCH ×2 (02:00)
[2025-07-10] MEDS ORDERED: Insulin Regular, Human 100 UNIT/ML ML SUB-Q SCH (02:00)
--- NOTE | 2025-07-10 03:28 | NUR ---
CALL LIGHT ANSWERED. PT NEEDED TO USE BATHROOM. FIREARMS INSTRUCTOR SBA TO BATHROOM. PT VOIDED AND ASSISTED BACK TO BED. NG TUBE RECONNECTED TO SUCTION. PT STATES NO FURTHER NEEDS AT THIS TIME. CALL LIGHT WITHIN REACH.
--- NOTE | 2025-07-10 04:55 | NUR ---
PT SLEEPING SOUNDLY. APPEARS COMFORTABLE. NGT IN PLACE, HOB ELEVATED. SPOUSE ASLEEP AT BEDSIDE.
[2025-07-10 05:40] LABS: BASOPHILS 0.3 % (0.2-1.2); EOSINOPHILS 1.7 % (0.8-7.0); LYMPHOCYTES 18.8 % (21.8-53.1); MCH 31.9 PG (25.7-32.2); MCHC 35.7 g/dL (32.3-36.5); MCV 89.5 fL (79.0-92.2); MONOCYTES 18.1 % (5.3-12.2); NEUTROPHILS 60.8 % (34.0-67.9); RBC 5.04 M/uL (4.63-6.08)
[2025-07-10 05:49] LABS: GLOMERULAR FILTRATION RATE,EST 61.0 mL/min (>60); UREA NITROGEN 22.0 mg/dL (7-18)
--- NOTE | 2025-07-10 05:56 | NUR ---
MARBLE CUTTER OPERATOR OBTAINED VITALS AND I&O. PT STATES NO NEEDS AT THIS TIME. CALL LIGHT WITHIN REACH.
--- NOTE | 2025-07-10 06:30 | NUR ---
PT AWAKE, REPORTS SORE THROAT. NGT WITH ORANGE DRNG. PT REPORTS PASSING SOEM FLATUS. ABD LESS FIRM. BTA. REPORTS FEELING A LITTLE BETTER THIS AM.
--- NOTE | 2025-07-10 06:36 | NUR ---
PHONE CALL TO ALLEGRA TO REQUEST PRN CHLORASEPTIC SPRAY-ORDER RECEIVED. UPDATED ON PT STATUS.
[2025-07-10] MEDS ORDERED: phenoL 177 ML SPRAY MT PRN ×2 (06:45)
--- NOTE | 2025-07-10 07:25 | NUR ---
RECIEVED REPORT FROM WILBER BHATTI. PT AWAKE IN BED, AT THE BEDSIDE. NG TUBE TO MIS PER ORDER. PT STATES NO CURRENT NEEDS, CALL LIGHT WITHIN REACH.
[2025-07-10] MEDS ORDERED: LACTATED RINGER'S 1,000 ML IV SCH (07:45)
--- NOTE | 2025-07-10 07:52 | NUR ---
UR CLINICAL REVIEW: 2 MN BERTO, MEETS INPT FOR SBO NG TUBE IN PLACE, NPO, IV MEDS, IV FLUIDS MEDICARE INPT 07/09/2025 @ 4030 ORDER MATCHES REG NO AUTH REQUIRED PER MEDICARE RULES PLAN TO DC TO HOME WHEN MEDICALLY READY
--- NOTE | 2025-07-10 10:47 | NUR ---
Spoke with Greg and his Elena. They live in a 1 story home with 2 steps. He does not have any issues getting in or out of the home. Pt does not use any DME but has access to a walker and cane. 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 The sons limit the amount of work he does. He does not have any financial issues or safety concerns. He is a and is 70% service connected. Pt plans on dc to home when medically cleared.
--- NOTE | 2025-07-10 11:25 | NUR ---
PT C/O 06/14 HEADACHE LOCALIZING AROUND R EYE AND UPPER JAW ON R SIDE. DR. DINH CALLED BY THIS RN, STATES PO MEDICATIONS ARE OKAY TO GIVE IF HOSPITALIST IS TO ORDER THEM. THIS RN UPDATES DR. RIVERS OF PT STATUS AND CALL WITH DR. DINH. TO BEDSIDE TO DISCUSS PT STATUS. MD STATES HE WILL PLACE NEW ORDERS. PT UP TO RESTROOM WITH SBA, AT THE BEDSIDE. PT STATES NO FURTHER NEEDS AT THIS TIME, CALL LIGHT WITHIN REACH.
--- NOTE | 2025-07-10 11:32 | NUR ---
VISITED DURING SPIRITUAL CARE ROUNDS. PT SUPPORTED BY IN ROOM. IN OVERALL GOOD SPIRITS, NO IMMEDIATE NEEDS. PT EXHIBTIED SIGNS OF FRUSTRATION, PHYSICAL DISCOMFORT, EXPRESSED GRATITUDE FOR TREATMENT, CONFIDENCE IN RECOVERY. REFINERY OPERATOR PROVIDED SUPPORTIVE PRESENCE, HOSPITALITY, PRAYER, ENCOURAGED FOCUS ON PRESENT. PT AND EXPRESSED GRATITUDE.
[2025-07-10] MEDS ORDERED: ACETAMINOPHEN 325 MG TAB PO PRN (11:45)
[2025-07-10] MEDS ORDERED: ADULT ASPIRIN R81 MG PO (13:07)
[2025-07-10] MEDS ORDERED: CYTOMEL5 MCG PO (13:10)
[2025-07-10] MEDS ORDERED: VIAGRA50 MG PO (13:15)
[2025-07-10] MEDS ORDERED: CALCIUM500 MG PO (14:20)
[2025-07-10] MEDS ORDERED: VITAMIN B-121000 MCG PO (14:21)
[2025-07-10] MEDS ORDERED: FLONASE ALLERG9.9 ML NAS (14:22)
[2025-07-10] MEDS ORDERED: VOLTAREN ARTHRI20 GM TOP (14:24)
--- NOTE | 2025-07-10 14:26 | NUR ---
MED REC COMPLETE
--- NOTE | 2025-07-10 14:36 | NUR ---
PT NGT CONNECTED TO MIS. PT REPORTS HEADACHE HAS SUBSIDED. FAMILY AT BEDSIDE. PT IN BED, CALL HERNANDEZ IN REACH, BED IN LOW POSITION AND LOCKED. SIDERAILS UP X2. PT INSTRUCTED TO CALL FOR ASSISTANCE.
--- NOTE | 2025-07-10 15:35 | NUR ---
THIS RN CALLS DR. DINH TO UPDATE ON PT STATUS PT STATED HE IS EXPERIENCING INCREASED TENDERNESS TO RUQ WELL INCREASED FEELING OF DISTENTION AND THIS RN'S ASSESSMENT OF PT ABDOMEN HAVING AN INCREASE IN FIRMNESS AND BOWEL TONES DECREASINGLY ACTIVE FROM MORNING ASSESSMENT. MD STATES HE WILL COME TO BEDSIDE LATER TODAY.
--- NOTE | 2025-07-10 16:20 | NUR ---
PT UP TO RESTROOM WITH SBA, PT BACK TO BED, NG TUBE RECONNECTED TO SUCTION PER ORDER. PT AND STATE NO FURTHER NEEDS AT THIS TIME, CALL LIGHT WITHIN REACH.
[2025-07-10] MEDS ORDERED: DEXTROSE 5% - NACL 0.9% 1,000 ML IV SCH ×2 (19:00)
--- NOTE | 2025-07-10 19:05 | NUR ---
REPORT RECEIVED FROM SAIDA MERINO. pt SITTING ON THE EDGE OF THE BED. BOARD UPDATED. WATER REFRESHED. JELLO PROVIDED. pt DENIES ANY OTHER NEEDS AT THIS TIME. CALL LIGHT WITHIN REACH.
[2025-07-10] MEDS ORDERED: METOCLOPRAMIDE HCL 10 MG/2 ML SDV IV SCH ×2 (20:00)
--- NOTE | 2025-07-10 20:50 | NUR ---
ASSESSMENT AND VITAL SIGNS DONE. BG CHECKED WITH A RESULT OF 185. SS INSULIN ADMINISTER. SCHEDULED MEDS ADMINISTERED. BOWEL TONES ACTIVE. pt DENIES ANY OTHER NEEDS AT THIS TIME. CALL LIGHT WITHIN REACH. IV ASSESSED, WNL. IVF INFUSING PER ORDER. ICE WATER PROVIDED.
--- NOTE | 2025-07-10 23:42 | NUR ---
pt RESTING IN THE BED WITH EYES CLOSED. RR EVEN AND UNLABORED. CALL LIGHT WITHIN REACH.
[2025-07-11] VITALS (8 sets, daily range): BP systolic 115–151; BP diastolic 64–89
--- NOTE | 2025-07-11 01:31 | NUR ---
pt RESTING IN BED WITH EYES CLOSED. RR EVEN AND UNLABORED. CALL LIGHT WITHIN REACH.
--- NOTE | 2025-07-11 02:33 | NUR ---
IN RM TO GIVE SCHEDULED MEDS. BG CHECKED WITH A RESULTS OF 133. NO SS INSULIN ADMINISTERED. pt DENIES ANY OTHER NEEDS AT THIS TIME. CALL LIGHT WITHIN REACH.
--- NOTE | 2025-07-11 04:44 | NUR ---
pt RESTING IN THE BED WITH EYES CLOSED. RR EVEN AND UNLABORED. CALL LIGHT WITHIN REACH.
[2025-07-11 05:15] LABS: BASOPHILS 0.4 % (0.2-1.2); EOSINOPHILS 3.0 % (0.8-7.0); LYMPHOCYTES 22.3 % (21.8-53.1); MCH 31.9 PG (25.7-32.2); MCHC 35.4 g/dL (32.3-36.5); MCV 90.2 fL (79.0-92.2); MONOCYTES 16.8 % (5.3-12.2); NEUTROPHILS 57.4 % (34.0-67.9); RBC 4.48 M/uL (4.63-6.08)
[2025-07-11 05:36] LABS: GLOMERULAR FILTRATION RATE,EST 68.0 mL/min (>60); UREA NITROGEN 14.0 mg/dL (7-18)
--- NOTE | 2025-07-11 07:39 | NUR ---
RECEIVED REPORT FROM WILBER BARTON. PT LAYING IN BED WITH EYES CLOSED, UNLABORED BREATHING. PTS RESTING ON COUCH AT BEDSIDE. NO NEEDS AT THIS TIME, CALL LIGHT IN REACH, BED LOWERED.
[2025-07-11] MEDS ORDERED: POTASSIUM CHLORIDE 40 MEQ,LIDOCAINE HCL 1% 40 MG in DEXTROSE 5% 250 ML IV ONE (09:00)
[2025-07-11] MEDS ORDERED: MAGNESIUM CHLORIDE 64 MG TABCR PO ONE (09:00)
--- NOTE | 2025-07-11 09:47 | NUR ---
PATIENT IN CHAIR AT THIS TIME. OPERATIONS CONSULTANT CHARTED VITALS AND I&O'S. CALL LIGHT WITHIN REACH, NO FURTHER NEEDS.
[2025-07-11] MEDS ORDERED: MAGNESIUM SULFATE 2 GM/50 ML BAG IV ONE ×2 (10:00)
--- NOTE | 2025-07-11 10:20 | NUR ---
DR. DINH TO BEDSIDE TO DISCUSS POC. STATES PT IS TO HAVE 60G CARB LUNCH AND DINNER WITH BG CHECKS AND SS INSULIN WMHS. ALSO STATES TO NOT GIVE IV MAGNESIUM ORDERED PT HAS ALREADY TAKEN PO MAGNESIUM THIS MORNING PER ORDER. STATES HE WILL RETURN TO BEDSIDE THIS EVENING TO ASSESS AND POSSIBLY DC DEPENDING ON HOW PT TOLERATES MEALS. PT STATES NO CURRENT QUESTIONS OR NEEDS, CALL LIGHT WITHIN REACH.
--- NOTE | 2025-07-11 11:31 | NUR ---
PT UP TO CHAIR, STATES NO CURRENT NEEDS, CALL LIGHT WITHIN REACH.
[2025-07-11] MEDS ORDERED: IBLOOD GLUCOSE TEST STRIP 1 EA TEST VI SCH ×2 (12:00)
[2025-07-11] MEDS ORDERED: Insulin Regular, Human 100 UNIT/ML ML SUB-Q SCH ×2 (12:00)
--- NOTE | 2025-07-11 12:40 | NUR ---
PATIENT SITTING IN BED, FINISHED EATING LUNCH. PT STATES HE FEELS GOOD AND STATES NO NAUSEA. NO COMPLAINTS AT THIS TIME, CALL LIGHT IN REACH, BED LOWERED. AT BEDSIDE. ALL QUESTIONS ANSWERED.
--- NOTE | 2025-07-11 13:35 | NUR ---
PATIENT IN BED AT THIS TIME. STEREOTYPER HELPER CHARTED VITALS AND I&O'S. CALL LIGHT WITHIN REACH, NO FURTHER NEEDS.
--- NOTE | 2025-07-11 16:35 | NUR ---
PT LAYING IN BED WATCHIHG TV. STATES HE DOES NOT NEED ANYTHING. AT BEDSIDE. CALL LIGHT IN REACH, BED LOWERED.
[2025-07-11] MEDS ORDERED: SIMETHICONE 80 MG CHEW PO PRN (17:00)
--- NOTE | 2025-07-11 18:30 | NUR ---
PATIENT IN BED AT THIS TIME. MAILING JOGGER CHARTED VITALS AND I&O'S. CALL LIGHT WITHIN REACH, NO FRUTHER NEEDS.
--- NOTE | 2025-07-11 19:00 | NUR ---
PT DRESSES SELF IN OWN CLOTHES. VSS. AT THE BEDSIDE. DC PACKET AND EDUCATION GIVEN TO PT AND ALONG WITH WRITTEN PRESCRIPTION AND LAB ORDERS. PT AND HIS VERBALIZE UNDERSTANDING OF INSTRUCTIONS AND MEDICATIONS, STATE ALL QUESTIONS HAVE BEEN ANSWERED. IV DC'D WNL.
[2025-07-12] MEDS ORDERED: LEVOTHYROXINE SODIUM 150 MCG TAB PO SCH (09:00)
[2025-07-12] MEDS ORDERED: TAMSULOSIN HCL 0.4 MG CAP PO SCH (09:00)
== END 2025-07-11 19:00 | disposition home or self-care (01) | DRG 389 ==
LOC: ED 17:12 → MS 17:14
PROVIDERS: Emergency Medicine; ADMIT Surgery; ATTEND Surgery
PROC: 0D9670Z Drainage of Stomach with Drainage Device, Via Natural or Artificial Opening (ICD-10-PCS; principal; 2025-07-09)
DX: K56.600 Partial intestinal obstruction, unspecified as to cause (principal); N17.9 Acute kidney failure, unspecified; E11.9 Type 2 diabetes mellitus without complications; M06.9 Rheumatoid arthritis, unspecified; E03.9 Hypothyroidism, unspecified; R51.9 Headache, unspecified; N40.0 Benign prostatic hyperplasia without lower urinary tract symptoms; E87.6 Hypokalemia; E83.42 Hypomagnesemia; Z86.0100 Personal history of colon polyps, unspecified; Z88.0 Allergy status to penicillin; Z88.2 Allergy status to sulfonamides; Z88.8 Allergy status to other drugs, medicaments and biological substances; Z79.4 Long term (current) use of insulin; Z79.85 Long-term (current) use of injectable non-insulin antidiabetic drugs; Z79.631 Long term (current) use of antimetabolite agent; Z79.890 Hormone replacement therapy; Z79.1 Long term (current) use of non-steroidal anti-inflammatories (NSAID); Z90.49 Acquired absence of other specified parts of digestive tract
CPT/HCPCS: 36415; 71045; 74177; 74250; 80048; 80053; 81003; 83735; 85025; A9270; J1644; J1815; J2405; J2765; J3480; J3490; J7030; J7042; J7060; J7121; Q9967